=== PATIENT | male | born 2000 | race Caucasian/White ===

== ENCOUNTER 2023-02-12 18:52 | Emergency (ER) | payer MEDICAID, SELFPAY ==
[2023-02-12 19:11] VITALS: BP 134/77; PULSE 91; RESP 16; TEMP 36.7; O2SAT 97
[2023-02-12] MEDS: IBUPROFEN 200 MG TABLET 400 MG PO (21:05)
--- NOTE | 2023-02-12 21:09 | ED_ITS ---
HPI - General Adult General Date Seen: 02/12/23 Chief complaint: Ear/Nose/Throat Problem Stated complaint: 01/24 ear pain Time Seen by Provider: 02/12/23 20:50 Source: patient Mode of arrival: ambulatory Limitations: no limitations History of Present Illness HPI narrative: Patient is a 22-year-old young man who has had cold symptoms for few days and then starting 2 days ago developed ear pain 1st on the right and now bilaterally. This has become severe over the past 24 hours. Has not taken anything for pain. Has not had fevers. No drainage from the ears. General health is good. No allergies. Related Data Allergies Allergy/AdvReac Type Severity Reaction Status Date / Time No Known Drug Allergies Allergy Verified 02/12/23 19:11 PFSH PFSH Social History Smoking Status: Never smoker Do you use any of these nicotine containing products: None Second hand tobacco smoke exposure: Yes How often do you have a drink containing alcohol: never How often do you have six or more drinks on one occasion: Never AUDIT-C Alcohol total score: 0 Non-prescribed substance use: denies use service: No Exam Narrative: Exam Narrative: Vital signs reviewed In general, alert, well-appearing man. Eyes: Sclera clear. ENT: Nares are congested. Mucous membranes moist. Bilateral TMs are erythematous, dull bulging. Neck: Supple without adenopathy. Heart: Regular rate and rhythm. Lungs: Clear. Const: Vital Signs, click to edit/add: Vital Signs - 24 hr 02/12/23 19:11 Temperature 98.0 F Pulse Rate [Left P ulse Oximeter] 91 Respiratory Rate 16 Blood Pressure [Ri ght Upper Arm] 134/77 Pulse Oximetry 97 Oxygen Delivery Me thod Room Air Documenting provider has reviewed patient's vital signs: yes Course Course ED Course: Given ibuprofen here as he says he does not have anything at home. Will start him on amoxicillin given duration and worsening of symptoms although reviewed with him that often ear infections are viral and it may take a couple of days regardless to feel better. In the meantime I would recommend ibuprofen plus or minus Tylenol. Return for worsening. Primary care follow-up if not improving over the next few days despite treatment. Vital Signs Vital signs: Initial Vital Signs Temperature 98.0 F 02/12/23 19:11 Temperature Source Temporal Artery Scan 02/12/23 19:11 Pulse Rate 91 10/29/23 19:11 Pulse Rhythm Regular 02/12/23 19:11 Respiratory Rate 16 02/12/23 19:11 Blood Pressure 134/77 02/12/23 19:11 Blood Pressure Mean 96 02/12/23 19:11 Blood Pressure Position Sitting 02/12/23 19:11 Pulse Oximetry 97 02/12/23 19:11 Oxygen Delivery Method Room Air 02/12/23 19:11 Vital Signs Temperature 98.0 F 02/12/23 19:11 Pulse Rate 91 02/12/23 19:11 Respiratory Rate 16 02/12/23 19:11 Blood Pressure 134/77 02/12/23 19:11 Pulse Oximetry 97 02/12/23 19:11 Oxygen Delivery Method Room Air 02/12/23 19:11 Temperature 98.0 F 02/12/23 19:11 Pulse Rate 91 02/12/23 19:11 Respiratory Rate 16 02/12/23 19:11 Blood Pressure 134/77 02/12/23 19:11 Pulse Oximetry 97 02/12/23 19:11 Oxygen Delivery Method Room Air 02/12/23 19:11 Discharge Plan Discharge Clinical Impression: Otitis media Patient Disposition: Home, Self-Care Condition: Stable Instructions: Ear Infection (ED) Additional Instructions: Antibiotic as prescribed. Ibuprofen 400 mg 3 times daily +/-1000 mg of Tylenol 3 times daily. You should start to feel better over the next 48 hours. If you are feeling worse, develops high fevers, severe uncontrolled pain, return for re-evaluation. Follow Up/Referrals: Carmen Turk MD [Primary Care Provider] - Stand Alone Forms: [facility] Info Instructions
== END 2023-02-12 21:20 | disposition home or self-care (01) ==
LOC: ED 21:16
PROVIDERS: Emergency Provider Emergency Medicine; PCP Pediatrics
DX: H66.93 Otitis media, unspecified, bilateral (principal)
CPT/HCPCS: 99283; A9270

== ENCOUNTER 2024-08-16 15:04 | Emergency (ER) | payer OTHER, SELFPAY ==
--- OUTSIDE RECORDS SUMMARY | 2024-08-16 15:06 | XMS_ITS | Clinical Summary ---
Author Organization [facility] Address [address] [place] [id number] Care Team Providers Care Software Writer Name Role Phone Pcp, No Unavailable Unavailable Pcp, No Primary Care Provider Unavailabl e Allergies No known active allergies Medications Inhalational Spacing Device (INSPIREASE)Indica tions:Wheezing For home use. 1 Device 0 4 Active loratadine (CLARITIN) 10 mg tabletIndications: Wheezing Take 1 tablet by mouth once daily. 90 tablet 3 7 Active dextroamphetamine- amphetamine (ADDERALL XR) 10 mg Extended-Release capsuleIndications :ADD (attention deficit disorder) without hyperactivity TAKE ONE CAPSULE BY MOUTH ONE TIME DAILY 30 capsule 8 Active albuterol HFA (Ventolin HFA) 90 mcg/actuation inhalerIndications :Wheezing Inhale 2 Puffs by mouth every 4 hours if needed for Wheezing 2nd choice. 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 07/28/2011 Resolved Problems Problem Noted Date Diagnosed Date Resolved Date Chronic tonsillitis 02/28/2014 06/27/19 15 Immunizations Immunization Administration Dates Next Due AMB Influenza, IIV4 PF (=>6 mos Flulaval,Fluzone Fluarix)(Flu Clinic Only) 01/31/2014 DTP 11/06/2009, 4,11/29/1999,04/13,1998 HPV 9 (Gardasil 9) 02/20/2015 Hepatitis A (Peds) 11/06/2009,03/06/2007 Hepatitis B (Peds) 11/29/1999, 9,1998,07/23 Hib Conjugate, Unspecified 11/29/1999,04/13/1999 ,1998 Inactivated Polio Vaccine 09/10/2003,,04/13/1999,12/16 Influenza, IIV3 (Age >=3 years) 02/26/2013,03/01 Influenza,LAIV4 Live Intrana codey (Flumist) 02/26/2013,03/01/2010,03/08/2005 MENINGOCOCCAL VACCINE 2 VIAL [id number] (MENVEO) 02/20/2015 MMR 09/10/2003,04/06/2000 Tdap 11/06/2009 Family History Medical History Relation Name Comments Asthma Father Heart Disease Maternal Grandfather [place] Asthma Mother Thyroid Disease Mother hyperthyroid Asthma Sister x2 Anesthesia Problem No Family History Blood Disease No Family History Relation Name Status Comments Father Maternal Grandfather Mother Sister Social History Tobacco Use Types Packs/Day Years Used Date Smoking Tobacco: Never Smokeless Tobacco: Never Tobacco Cessation:Counseling Given: Yes Comments:outside exposure only Alcohol Use Standard Drinks/Week Comments No 0 (1 standard drink = 0.6 oz pur e alcohol) Social Connections Answer Date Recorded Frequency of Communication with Friends and Fami ly Not on file 04/21/2021 Financial Resource Strain Answer Date R ecorded Difficulty of Paying Living Expenses Not on file 04/21/2021 Difficulty of Paying Living Expenses Not on file 04/21/2021 Sex and Gender Information Value Date Recorded Sex Assigned at Not on file Legal Sex Male 8:27 AM PRODUCTION CONTROL COORDINATING CLERK Gender Identity Not on file Sexual Orientation Not on file Obstetrics History Last Filed Vital Signs Vital Sign Reading Time Taken Comments Blood Pressure 120/79 05/17/2022 12:48 PM PRODUCTION CONTROL COORDINATING CLERK Pulse 83 05/17/2022 12:48 PM PRODUCTION CONTROL COORDINATING CLERK Temperature 36.8 C (98.2 F) 05/17/2022 12:48 PM PRODUCTION CONTROL COORDINATING CLERK Respiratory Rate 20 06/26/2014 9:56 AM CDT Oxygen Saturation 97% 05/17/2022 12:48 PM PRODUCTION CONTROL COORDINATING CLERK Inhaled Oxygen Concentration - - Weight 95.8 kg (211 lb 3.2 oz) 05/17/2022 12:48 PM PRODUCTION CONTROL COORDINATING CLERK Height 175.6 cm (5' 9.13) 04/21/2021 7:41 AM CS T Body Mass Index 31.07 04/21/2021 7:41 AM PRODUCTION CONTROL COORDINATING CLERK Plan of Treatment Health Maintenance Due Date Last Done Comments HIV for age 15-65 2013 HPV series for age 9-26 (2 - Male 3-dose series) 03/20/2015 02/20/2015 Hepatitis C screening for age 18-79 2016 Depression screening for age 12+ 08/05/2017 08/05/2016, 08/13/2015, 08/12/2015 Tetanus booster 11/07/2019 11/06/2009 BMI (ht and wt on same day) for age 18+ 04/21/2022 04/21/2021, 12/03/2016, 10/20/2016, Additional history exists COVID-19 vaccine series (2023- season) 2023 Influenza Vaccine (Season Ended) 2024 01/31/2014, 02/26/2013, 02/26/2013, Additional history exists Tdap Completed 11/06/2009 Pneumococcal series for age 6-49 Aged Out No longer eligible based on patient's age to complete this topic Insurance [employer] Care Teams Software Writer Relationship Specialty Start Date End Date Pcp, No . PCP - General 04/24/24 Pcp, No . 01/06/14
[2024-08-16 15:11] VITALS: BP 132/85; PULSE 90; RESP 26; TEMP 35.7; O2SAT 96; BMI 32.3
--- NOTE | 2024-08-16 15:41 | ED_ITS ---
HPI - General Adult General Chief complaint: Nausea/Vomiting Stated complaint: Stomach issues, fever Time Seen by Provider: 08/16/24 15:05 Source: patient and family Mode of arrival: ambulatory Limitations: no limitations History of Present Illness HPI narrative: 24-year-old male presents today with his father, concerned about vomiting. Vomiting started this morning and has continued throughout the day. Patient denies any fevers or chills. Patient states that he vomits 1st thing in the morning approximately once or twice every 2 weeks. No diarrhea. No urinary symptoms. No abdominal pain aside from cramping. He has not eaten anything today because he can not stop dry heaving. Patient smokes marijuana daily. Denies alcohol use. No blood in his vomitus. Patient takes no medications. Has no known medical issues. Has a family history of connective tissue disease. Related Data Home Medications ?Medication ?Instructions ?Recorded ?Confirmed No Known Home Medications 08/16/24 08/16/24 Allergies Allergy/AdvReac Type Severity Reaction Status Date / Time No Known Drug Allergies Allergy Verified 08/16/24 15:10 Review of Systems Status of ROS: Reports: 10 or more systems reviewed and unremarkable except as noted in History and below [facility] Social History Smoking Status: Never smoker Do you use any of these nicotine containing products: None Second hand tobacco smoke exposure: Yes How often do you have a drink containing alcohol: never How often do you have six or more drinks on one occasion: Never AUDIT-C Alcohol total score: 0 Non-prescribed substance use: denies use service: No Exam Narrative: Exam Narrative: Overweight, well-developed patient, clearly uncomfortable. Dry heaves several times during our conversation. Alert and oriented. Answers questions appropriately. Patient speaks in full sentences without needing to catch his breath. HEENT: Normocephalic atraumatic. Pupils are equally round reactive to light. Extraocular muscles are intact. Conjunctivae are moist without any icterus noted. Moist mucous membranes. Posterior pharynx is normal. Neck is soft without any lymphadenopathy or thyromegaly. No masses are appreciated. No appears pale, diaphoretic. Cardiovascular: Heart is regular rate and rhythm S1 and S2 are present without any murmurs. Lungs: Clear to auscultation bilaterally no wheezes rhonchi or rales are appreciated. Abdomen: Soft and nontender nondistended with normal bowel sounds. Extremities: Bilateral lower extremities are without edema. Skin: Well perfused without any obvious rashes. Const: Vital Signs, click to edit/add: Vital Signs - 24 hr 08/16/24 15:11 Temperature 96.3 F L Pulse Rate [Pulse Oximeter] 90 Respiratory Rate 26 H Blood Pressure [Ri t Upper Arm] 132/85 Pulse Oximetry 96 Oxygen Delivery Me thod Room Air Course Course ED Course: IV established. Patient was treated with 2 L of normal saline and IV droperidol. He felt much better after treatment. Blood work showed elevated white cell count and elevated lactate. Repeat lactate came down to 2.7. Again, patient was feeling significantly better and requesting discharge at this time. Vital Signs Vital signs: Initial Vital Signs Temperature 96.3 F L 08/16/24 15:11 Temperature Source Temporal Artery Scan 08/16/24 15:11 Pulse Rate 90 08/16/24 15:11 Respiratory Rate 26 H 08/16/24 15:11 Blood Pressure 132/85 08/16/24 15:11 Blood Pressure Mean 100 08/16/24 15:11 Pulse Oximetry 96 08/16/24 15:11 Oxygen Delivery Method Room Air 08/16/24 15:11 Vital Signs Temperature 96.3 F L 08/16/24 15:11 Pulse Rate 90 08/16/24 15:11 Respiratory Rate 26 H 08/16/24 15:11 Blood Pressure 132/85 08/16/24 15:11 Pulse Oximetry 96 08/16/24 15:11 Oxygen Delivery Method Room Air 08/16/24 15:11 Temperature 96.3 F L 08/16/24 15:11 Pulse Rate 90 08/16/24 15:11 Respiratory Rate 26 H 08/16/24 15:11 Blood Pressure 132/85 08/16/24 15:11 Pulse Oximetry 96 08/16/24 15:11 Oxygen Delivery Method Room Air 08/16/24 15:11 Medications Administered Medications: Discontinued Medications Generic Name Dose Route Start Last Admin Trade Name Freq PRN Reason Stop Dose Admin Droperidol 1.25 mg 08/16/24 15:39 08/16/24 15:56 Droperidol 2.5 Mg/Ml Inj IV 08/16/24 15:40 1.25 mg ONCE ONE Administration Sodium Chloride 1,000 mls @ 1,000 mls/hr 08/16/24 15:45 08/16/24 15:56 0.9 % Sodium Chloride 1000 Ml IV 08/16/24 16:44 1,000 mls/hr .Q1H TRENT Administration Sodium Chloride 1,000 mls @ 1,000 mls/hr 08/16/24 16:30 08/16/24 17:05 0.9 % Sodium Chloride 1000 Ml IV 08/16/24 17:29 1,000 mls/hr .Q1H TRENT Administration Medical Decision Making MDM Narrative Medical decision making narrative: 24-year-old male with vomiting. Likely secondary to marijuana use. We discussed this at length today. Lab Data Lab results reviewed: Yes I reviewed the patient's lab results Labs: Lab Results 08/16/24 08/16/24 Range/Units 16:00 17:55 WBC 14.44 H (4.50-11.00) K/uL RBC 5.41 (4.30-5.90) m/uL Hgb 16.0 (13.5-17.5) gm/dL Hct 46.8 (37.0-53.0) % MCV 87 (80-100) fL MCH 30 (26-34) pg MCHC 34 (32-36) gm/dL RDW Coeff of Yessy 13.5 (11.5-15.5) % Plt Count 287 (140-440) K/uL Neut % (Auto) 79.4 H (42.0-72.0) % Lymph % (Auto) 14.3 L (20-44) % Newberry % (Auto) 5.5 (0.0-11.0) % Eos % (Auto) 0.1 (0.0-7.0) % Baso % (Auto) 0.2 (0.0-3.0) % Neut # (Auto) 11.50 H (1.7-7.0) K/uL Lymph # (Auto) 2.10 (0.90-2.90) K/uL Newberry # (Auto) 0.80 (0.00-0.90) K/UL Eos # (Auto) 0.00 (0.00-0.50) K/uL Baso # (Auto) 0.00 (0.00-0.30) K/uL Abs Immat Gran (auto) 0.10 (0.00-0.30) K/uL Imm/Tot Granulo (auto) 0.5 % Sodium 144 (135-149) mmol/L Potassium 4.2 (3.6-5.1) mmol/L Chloride 108 (96-114) mmol/L Carbon Dioxide 18 L (20-32) mmol/L Anion Gap 18 H (7-15) mEq/L BUN 22 (5-24) mg/dL Creatinine 0.9 (0.5-1.5) mg/dL Estimated Creat Clear 124.38 Estimated GFR 121 ml/min Glucose 131 H (60-115) mg/dL Lactate 3.8 H 2.7 H (0.5-1.9) mmol/L Calcium 10.0 (8.4-10.6) mg/dL Total Bilirubin 0.6 (0.1-1.5) mg/dL Direct Bilirubin 0.4 (0.0-0.5) mg/dL AST 38 H (12-35) U/L ALT 42 (4-50) U/L Alkaline Phosphatase 72 (40-150) U/L Total Protein 8.6 H (6.0-8.3) g/dL Albumin 5.2 H (3.3-5.0) g/dL Lipase 35 (23-300) U/L Discharge Plan Discharge Clinical Impression: Vomiting Patient Disposition: Home, Self-Care Condition: Stable Additional Instructions: It is very likely that your vomiting secondary to chronic marijuana use. Recommend abstaining from marijuana use going forward. It can take several months for the vomiting to subside completely. Prescriptions: No Action No Known Home Medications Follow Up/Referrals: Carmen Turk MD [Primary Care Provider] - Stand Alone Forms: [employer] Info Instructions
--- OUTSIDE RECORDS SUMMARY | 2024-08-16 15:55 | XMS_ITS | Clinical Summary ---
Author Organization [facility] Address [address] [place] [id number] Care Team Providers Care Event Designer Name Role Phone Pcp, No Unavailable Unavailable [...] Comments Asthma Father Heart Disease Maternal Grandfather [place] Asthma Mother Thyroid Disease Mother hyperthyroid Asthma [...] on file Legal Sex Male 8:27 AM CURTAIN WORKER Gender Identity Not on file Sexual Orientation Not on file Obstetrics History Last Filed Vital Signs Vital Sign Reading Time Taken Comments Blood Pressure 120/79 05/17/2022 12:48 PM CURTAIN WORKER Pulse 83 05/17/2022 12:48 PM CURTAIN WORKER Temperature 36.8 C (98.2 F) 05/17/2022 12:48 PM CURTAIN WORKER Respiratory Rate 20 06/26/2014 9:56 AM CDT Oxygen Saturation 97% 05/17/2022 12:48 PM CURTAIN WORKER Inhaled Oxygen Concentration - - Weight 95.8 kg (211 lb 3.2 oz) 05/17/2022 12:48 PM CURTAIN WORKER Height 175.6 cm (5' 9.13) 04/21/2021 7:41 AM CS T Body Mass Index 31.07 04/21/2021 7:41 AM CURTAIN WORKER Plan of Treatment Health Maintenance Due Date [...] patient's age to complete this topic Insurance [facility] Care Teams Event Designer Relationship Specialty Start Date End Date Pcp, No . PCP - General 04/24/24 Pcp, No . 01/06/14
[2024-08-16] MEDS: 0.9 % SODIUM CHLORIDE 1000 ml 1,000 ML IV ×2 (15:56→17:05)
[2024-08-16] MEDS: droperidoL 2.5 MG/ML inj 1.25 MG IV (15:56)
[2024-08-16 16:10] LABS: Basophils Percent Auto 0.2 % (0.0-3.0); Eosinophils Percent Auto 0.1 % (0.0-7.0); Hematocrit 46.8 % (37.0-53.0); Immature Granulocytes Pct Auto 0.5 %; Lymphocytes Percent Auto 14.3 % (20-44); Mean Corpuscular HGB Conc 34 gm/dL (32-36); Mean Corpuscular Hemoglobin 30 pg (26-34); Mean Corpuscular Volume 87 fL (80-100); Monocytes Percent Auto 5.5 % (0.0-11.0); Neutrophils Percent Auto 79.4 % (42.0-72.0); Platelet Count* 287 K/uL (140-440); RDW Coefficient of Variation % 13.5 % (11.5-15.5); Red Blood Count 5.41 m/uL (4.30-5.90); White Blood Count* 14.44 K/uL (4.50-11.00)
[2024-08-16 16:13] LABS: Slide Review Reflex No
[2024-08-16 16:17] LABS: Lactate* 3.8 mmol/L (0.5-1.9)
[2024-08-16 16:48] LABS: Albumin* 5.2 g/dL (3.3-5.0)
[2024-08-16 16:49] LABS: Chloride* 108 mmol/L (96-114); Potassium* 4.2 mmol/L (3.6-5.1); Sodium* 144 mmol/L (135-149)
[2024-08-16 16:51] LABS: Blood Urea Nitrogen* 22 mg/dL (5-24); Creatinine* 0.9 mg/dL (0.5-1.5); Est. Creatinine Clearance* 124.38; Estimated Glomerular Filt Rate 121 ml/min
[2024-08-16 16:52] LABS: Alanine Aminotransferase* 42 U/L (4-50); Alkaline Phosphatase* 72 U/L (40-150); Anion Gap 18 mEq/L (7-15); Aspartate Amino Transferase* 38 U/L (12-35); Bilirubin Direct* 0.4 mg/dL (0.0-0.5); Bilirubin Total* 0.6 mg/dL (0.1-1.5); Carbon Dioxide* 18 mmol/L (20-32); Glucose* 131 mg/dL (60-115); Lipase* 35 U/L (23-300); Total Protein* 8.6 g/dL (6.0-8.3)
[2024-08-16 17:58] LABS: Lactate* 2.7 mmol/L (0.5-1.9)
[2024-08-16 18:15] VITALS: BP 147/97; PULSE 90; RESP 16
[2024-08-16 18:22] LABS: Thyroid Stimulating Hormone* 0.532 uIU/mL (0.270-4.20)
== END 2024-08-16 18:16 | disposition home or self-care (01) ==
PROVIDERS: Emergency Provider Family Medicine; PCP Pediatrics
DX: R11.10 Vomiting, unspecified (principal); F12.90 Cannabis use, unspecified, uncomplicated; Z86.69 Personal history of other diseases of the nervous system and sense organs
CPT/HCPCS: 36415; 80048; 80076; 83605; 83690; 84443; 85025; 93005; 96361; 96374; 99284; J1790; J7030

== ENCOUNTER 2024-08-20 22:25 | Emergency (ER) | payer OTHER, SELFPAY ==
--- OUTSIDE RECORDS SUMMARY | 2024-08-20 22:27 | XMS_ITS | Clinical Summary ---
Author Organization [employer] [facility] [employer] Address [address] [place] [id number] Care Team Providers Care Equal Opportunity Director Name Role Phone Pcp, No Unavailable Unavailable Pcp, No Primary Care Provider Unavailabl e Allergies No known active allergies Medications Inhalational Spacing Device (INSPIREASE)Indicat ions:Wheezing For home use. 1 Device 0 4 Active loratadine (CLARITIN) 10 mg tabletIndications:W heezing Take 1 tablet by mouth once daily. 90 tablet 3 7 Active dextroamphetamine-a mphetamine (ADDERALL XR) 10 mg Extended-Release capsuleIndications: ADD (attention deficit disorder) without hyperactivity TAKE ONE CAPSULE BY MOUTH ONE TIME DAILY 30 capsule 8 Active albuterol HFA (Ventolin HFA) 90 mcg/actuation inhalerIndications: Wheezing Inhale 2 Puffs by mouth every 4 hours if needed for Wheezing 2nd choice. 18 g 1 2 Active ondansetron 4 mg disintegrating tabletIndications:N ausea and vomiting, unspecified vomiting type Place 1 Tablet (4 mg) on the tongue every 8 hours if needed for Nausea/Vomit ing. 30 Tablet 5 Active omeprazole 40 mg Delayed-Release capsuleIndications: Abdominal pain, generalized Take 1 Capsule (40 mg) by mouth once daily before a meal. 30 Capsule 5 Active Active Problems Problem Noted Date Diagnosed Date Deviated nasal septum 02/28/2014 ADD (attention deficit disorder) without hyperac tivity 07/28/2011 Resolved Problems Problem Noted Date Diagnosed Date Resolved Date Chronic tonsillitis 02/28/2014 06/27/19 15 Encounters Date Type Department Care Team Description 08/20/2024 4:30 PM CDT Ancillary Procedure [facility] [address] [place] [address] Arrived 08/20/2024 2:40 PM CDT Office Visit [facility] [address] [place] [address] Job Hutchinson MD Hospital F/U; Gi Problem; Nausea 08/20/2024 Travel from Last 3 Months Immunizations Immunization Administration Dates Next Due AMB Influenza, IIV4 PF (=>6 mos Flulaval,Fluzone Fluarix)(Flu Clinic Only) 01/31/2014 DTP 11/06/2009, 4,11/29/1999,04/13,1998 DTaP 09/10/2003,04/13/1999,1998 DTaP-HIB (TriHIBIT) 11/29/1999 HIB HbOC (HibTITER) 04/13/1999,1998 HPV 9 (Gardasil 9) 02/20/2015 Hepatitis A (Peds) 11/06/2009,03/06/2007 Hepatitis B (Peds) 11/29/1999, 9,1998,07/23 Hepatitis B, Unspecified 1998 Hib Conjugate, Unspecified 11/29/1999,04/13/1999 ,1998 INFLUENZA, IIV3 PF (AGE >= 6 MO) 06/01/2006 Inactivated Polio Vaccine 09/10/2003,,04/13/1999,12/16 Influenza, IIV3 (Age >=3 years) 02/27/20 13,03/01/2010,03/06/2007,03/08 Influenza,LAIV3 Live Intrana codey (Flumist) 02/26/2013,12/04/2007 Influenza,LAIV4 Live Intrana codey (Flumist) 02/26/2013,03/01/2010,03/08/2005 MENINGOCOCCAL VACCINE 2 VIAL [id number] (MENVEO) 02/20/2015 MMR 09/10/2003,04/06/2000 Tdap 10/12/2016,11/06/2009 Family History Medical History Relation Name Comments Asthma Father Heart Disease Maternal Grandfather NE Asthma Mother Thyroid Disease Mother hyperthyroid Asthma Sister x2 Anesthesia Problem No Family History Blood Disease No Family History Relation Name Status Comments Father Maternal Grandfather Mother Sister Social History Tobacco Use Types Packs/Day Years Used Date Smoking Tobacco: Never Passive Smoke Exposure: Current Smokeless Tobacco: Never Tobacco Cessation:Counseling Given: Not Answered Comments:outside exposure only Alcohol Use Standard Drinks/Week Comments No 0 (1 standard drink = 0.6 oz pur e alcohol) Social Connections Answer Date Recorded Do you often feel lonely or isolated from those around you? 0 08/20/2024 Financial Resource Strain Answer Date R ecorded Difficulty of Paying Living Expenses 3 08/20/2024 Difficulty of Paying Living Expenses Not on file 08/20/2024 Food Insecurity Answer Date Recorded Do you worry your food will run out before you are able to buy more? 1 08/20/2024 Transportation Needs Answer Date Record ed Does lack of transportation keep you from medica l appointments? 1 08/20/2024 Does lack of transportation keep you from work, meetings or getting things that you need? 1 08/20/2024 Housing Stability Answer Date Recorded What is your housing situation today? 1 08/20/2024 Utilities Answer Date Recorded Do you have trouble paying f or utilities (for example, heat, electricity, water, phone)? 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 Gender Identity Not on file Sexual Orientation Not on file Obstetrics History Last Filed Vital Signs Vital Sign Reading Time Taken Comments Blood Pressure 126/86 08/20/2024 2:39 PM CDT Pulse 90 08/20/2024 2:39 PM CDT Temperature 36.8 C (98.2 F) 05/17/2022 12:48 PM CUSTOMER PRICING MANAGER Respiratory Rate 20 06/26/2014 9:56 AM CDT Oxygen Saturation 97% 05/17/2022 12:48 PM CUSTOMER PRICING MANAGER Inhaled Oxygen Concentration - - Weight 93.9 kg (207 lb) 08/20/2024 2:39 PM CDT Height 174.5 cm (5' 8.7) 08/20/2024 2:39 PM CDT Body Mass Index 30.84 08/20/2024 2:39 PM CDT Plan of Treatment Upcoming Encounters Date Type Department Care Team (Late st Contact Info) Description 08/22/2024 7:30 AM CDT Office [facility] [address] [facility] [address] Nader Rios MD [address] [place] [address] Health Maintenance Due Date Last Done Comments HIV for age 15-65 2013 HPV series for age 9-26 (2 - Male 3-dose series) 03/20/2015 02/20/2015 Hepatitis C screening for age 18-79 2016 Depression screening for age 12+ 08/05/2017 08/05/2016, 08/13/2015, 08/12/2015 COVID-19 vaccine series ( season) 2023 Influenza Vaccine (Season Ended) 2024 01/31/2014, 02/26/2013, 02/26/2013, Additional history exists BMI (ht and wt on same day) for age 18+ 08/20/2025 08/20/2024, 04/21/2021, 12/03/2016, Additional history exists Tetanus booster 10/12/2026 10/12/2016, 11/06/2009 Tdap Completed 10/12/2016, 11/06/2009 Pneumococcal series for age 6-49 Aged Out No longer eligible based on patient's age to complete this topic Procedures Procedure Name Priority Date/Time Associated Diagnosis Comments CT ABDOMEN PELVIS W STAT 08/20/2024 4 :51 PM CDT Abdominal pain, generalized from Last 3 Months Results * CT ABDOMEN PELVIS W (08/20/2024 4:51 PM CDT) Anatomical Region Laterality Modality Abdomen, Pelvis, AORTA, LIVER, SPLEEN Computed Tomography 08/20/2024 5:20 PM CDT Narrative 08/20/2024 5:20 PM CDT For Patients: As a result of the Cures Act, medical imaging exams and procedure reports are released immediately into your electronic medical record. You may view this report before your referring provider. If you have questions, please contact your health care provider. Indication: Abdominal pain. Technique: CT images of the abdomen and pelvis following intravenous contrast. Comparison: None. Findings: Small consolidative and branching opacities within the right middle lobe inferiorly. Clustered ground-glass and tree-in-bud opacities within the right greater than left lower lobes. No pleural effusion. Heart size is normal. The liver, spleen, gallbladder, and pancreas are unremarkable. The adrenal glands and kidneys are unremarkable. The stomach is underdistended. Appendix is unremarkable. No abnormally dilated loops of bowel. No free fluid or free air. Abdominal aorta is normal in caliber. No pathologically enlarged lymph nodes. Very small fat containing umbilical hernia. The urinary bladder is underdistended. Prostate gland is present. No aggressive osseous lesions. Impression: 1. No acute abnormality in the abdomen or pelvis. 2. Clustered ground-glass and tree-in-bud opacities within the right greater than left lower lobes of the lungs are nonspecific, though typical for an infectious or inflammatory process. Small consolidative and branching opacities within the right middle lobe inferiorly may represent atelectasis, though infection could also be considered. Dedicated CT chest could be performed for further evaluation as clinically warranted. Please note that all CT scans at this facility use dose modulation, iterative reconstruction, and/or weight-based dosing when appropriate to reduce radiation dose to as low as reasonably achievable. Dictated by Claudio Ramsay MD @ 08/20/2024 5:20:58 PM (Electronically Signed) Procedure Note Claudio Ramsay MD - 08/20/2024 For Patients: As a result of the Cures Act, medical imagingexams and procedure reports are released immediately into your electronicmedical record. You may view this report before your referring provider.If you have questions, please contact your health care provider. Indication: Abdominal pain. Technique: CT images of the abdomen and pelvis following intravenous contrast. Comparison: None. Findings: Small consolidative and branching opacities within the right middle lobeinferiorly. Clustered ground-glass and tree-in-bud opacities within theright greater than left lower lobes. No pleural effusion. Heart size isnormal. The liver, spleen, gallbladder, and pancreas are unremarkable. The adrenal glands and kidneys are unremarkable. The stomach is underdistended. Appendix is unremarkable. No abnormallydilated loops of bowel. No free fluid or free air. Abdominal aorta is normal in caliber. No pathologically enlarged lymph nodes. Very small fat containing umbilical hernia. The urinary bladder is underdistended. Prostate gland is present. No aggressive osseous lesions. Impression: 1. No acute abnormality in the abdomen or pelvis. 2. Clustered ground-glass and tree-in-bud opacities within the rightgreater than left lower lobes of the lungs are nonspecific, though typicalfor an infectious or inflammatory process. Small consolidative andbranching opacities within the right middle lobe inferiorly may representatelectasis, though infection could also be considered. Dedicated CT chestcould be performed for further evaluation as clinically warranted. Please note that all CT scans at this facility use dose modulation,iterative reconstruction, and/or weight-based dosing when appropriate toreduce radiation dose to as low as reasonably achievable. Dictated by Claudio Ramsay MD @ 08/20/2024 5:20:58 PM (Electronically Signed) us Job Hutchinson MD CT Final Result from Last 3 Months Insurance [id number] [place] [id number] [facility] Care Teams Equal Opportunity Director Relationship Specialty Start Date End Date Pcp, No . PCP - General 04/24/24 Pcp, No . 01/06/14
[2024-08-20 22:45] VITALS: BP 147/106; PULSE 98; RESP 16; TEMP 36.7; O2SAT 98; BMI 30.7
--- NOTE | 2024-08-20 23:00 | CRLHL7_ITS ---
For Patients: As a result of the Century Cures Act, medical imaging exams and procedure reports are released immediately into your electronic medical record. You may view this report before your referring provider. If you have questions, please contact your health care provider. Indication: Abnormalities seen on lower lobes abdominal CT Technique: Noncontrast CT of the chest with multiplanar reformats. Comparison: CT abdomen pelvis performed same day Findings: Lungs: Clustered nodular and curvilinear densities in the right lung base again noted. This appeared to enhance on prior examination and appears to be contiguous with internal thoracic, phrenic, and possibly pulmonary vasculature. This is not felt to be a primary pulmonary consolidation. Mediastinum: No acute abnormality appreciated. Lymph nodes: No gross lymphadenopathy. Upper abdomen: No acute abnormality appreciated. Soft tissues: No acute abnormality appreciated. Bones: No acute abnormality appreciated. Impression: Abnormality seen in the right lung base is favored to be vascular, not an infectious or inflammatory process. This is poorly evaluated by this noncontrast examination but based on images on the prior examination, a vascular malformation is suspected with involvement of the internal thoracic artery and the phrenic artery, possibly with additional involvement of pulmonary vasculature. Recommend vascular IR consultation. Please note that all CT scans at this facility use dose modulation, iterative reconstruction, and/or weight-based dosing when appropriate to reduce radiation dose to as low as reasonably achievable. Dictated by Tawanad Do MD @ 08/21/2024 12:07:26 AM (Electronically Signed)
--- OUTSIDE RECORDS SUMMARY | 2024-08-20 23:05 | XMS_ITS | Clinical Summary ---
Author Organization [employer] [facility] [employer] [facility] Address [address] [place] [address] Care Team Providers Care Wind Turbine Mechanical Engineer Name Role Phone Pcp, No Unavailable Unavailable [...] Description 08/20/2024 4:30 PM CDT Ancillary Procedure [facility] [address] [place] [address] Arrived 08/20/2024 2:40 PM CDT Office Visit [facility] [address] [place] [address] Job Hutchinson MD Hospital F/U; Gi Problem; [...] Comments Asthma Father Heart Disease Maternal Grandfather ID Asthma Mother Thyroid Disease Mother hyperthyroid Asthma [...] on file 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 Gender Identity Not on file Sexual Orientation Not on file Obstetrics History Last Filed Vital Signs Vital Sign Reading Time Taken Comments Blood Pressure 126/86 08/20/2024 2:39 PM CDT Pulse 90 08/20/2024 2:39 PM CDT Temperature 36.8 C (98.2 F) 05/17/2022 12:48 PM LABOR RELATIONS WORKER Respiratory Rate 20 06/26/2014 9:56 AM CDT Oxygen Saturation 97% 05/17/2022 12:48 PM LABOR RELATIONS WORKER Inhaled Oxygen Concentration - - Weight 93.9 kg (207 lb) 08/20/2024 2:39 PM CDT Height 174.5 cm (5' 8.7) 08/20/2024 2:39 PM CDT Body Mass Index 30.84 08/20/2024 2:39 PM CDT Plan of Treatment Upcoming Encounters Date Type Department Care Team (Late st Contact Info) Description 08/22/2024 7:30 AM CDT [facility] [address] [facility] [address] Nader Rios MD [address] [place] [address] Health Maintenance Due Date Last Done Comments [...] Final Result from Last 3 Months Insurance [facility] Care Teams Wind Turbine Mechanical Engineer Relationship Specialty Start Date End Date Pcp, No . PCP - General 04/24/24 Pcp, No . 01/06/14
--- NOTE | 2024-08-20 23:06 | ED.GENADULT ---
HPI - General Adult General Date Seen: 08/20/24 Chief complaint: Nausea/Vomiting Stated complaint: CT today, infection in lungs Time Seen by Provider: 08/20/24 22:41 Source: patient and family Mode of arrival: ambulatory Limitations: no limitations History of Present Illness HPI narrative: Patient is a 24-year-old male presenting to the emergency department with his mother. He was seen here few days ago and diagnosed with cannabinoid hyperemesis syndrome. Symptoms have been going on for a few weeks now. He does smoke marijuana daily but has not smoked marijuana now for 6 days he states. States only thing that makes him feel better is a hot shower. Has not had any blood in his vomit. Continues to feel nauseated and is dry heaving. Has not been able to eat or drink much. Had follow-up with his primary care provider today with that is CT scan of his abdomen pelvis showing no acute abdominal issues but there were some signs of possible pneumonia and a dedicated CT was recommended. Do this patient came to our emergency department for evaluation. Did have lab work done but did not have results Related Data Previous Rx's ?Medication ?Instructions ?Recorded metoclopramide HCl 10 mg tablet 10 mg PO Q6H PRN nausea and 08/21/24 vomiting #20 tabs Allergies Allergy/AdvReac Type Severity Reaction Status Date / Time No Known Drug Allergies Allergy Verified 08/20/24 22:44 Review of Systems Status of ROS: Reports: 10 or more systems reviewed and unremarkable except as noted in History and below [facility] Social History Smoking Status: Never smoker Do you use any of these nicotine containing products: None Second hand tobacco smoke exposure: Yes How often do you have a drink containing alcohol: never How often do you have six or more drinks on one occasion: Never AUDIT-C Alcohol total score: 0 Non-prescribed substance use: denies use service: No Exam Narrative: Exam Narrative: Const: Well-nourished, Well-developed, in mild distress Eyes: PERRL, no conjunctival injection, and symmetrical lids HENT: Atraumatic external nose and ears. Moist mucous membranes. Neck: Symmetric, trachea midline, No thyromegaly. CVS: RRR, No murmurs or gallops. Peripheral pulses 2+ and equal in all extremities RESP: Unlabored respiratory effort. Clear to auscultation bilaterally. GI: Nontender/Nondistended, No rebound or guarding. MSK:Extremities w/o deformity, Normal Active ROM Skin: Warm, Dry. No rashes or lesions. Neuro: Normal Muscle tone, No focal neurological deficits. Psych: Awake, Alert, & Oriented x3. Appropriate mood and affect. Const: Vital Signs, click to edit/add: Vital Signs - 24 hr 08/20/24 22:45 08/20/24 23:55 08/20/24 23:56 Temperature 98.0 F Pulse Rate 87 89 Pulse Rate [Pulse Oximeter] 98 Respiratory Rate 16 14 13 Blood Pressure 144/101 H Blood Pressure [Ri ght Upper Arm] 147/106 H Pulse Oximetry 98 96 96 Oxygen Delivery Me thod Room Air Course Vital Signs Vital signs: Initial Vital Signs Temperature 98.0 F 08/20/24 22:45 Temperature Source Temporal Artery Scan 08/20/24 22:45 Pulse Rate 98 08/20/24 22:45 Respiratory Rate 16 08/20/24 22:45 Blood Pressure 147/106 H 08/20/24 22:45 Blood Pressure Mean 119 H 08/20/24 22:45 Blood Pressure Position High-Fowlers 08/20/24 22:45 Pulse Oximetry 98 08/20/24 22:45 Oxygen Delivery Method Room Air 08/20/24 22:45 Vital Signs Temperature 98.0 F 08/20/24 22:45 Pulse Rate 98 08/20/24 22:45 Respiratory Rate 16 08/20/24 22:45 Blood Pressure 147/106 H 08/20/24 22:45 Pulse Oximetry 98 08/20/24 22:45 Oxygen Delivery Method Room Air 08/20/24 22:45 Temperature 98.0 F 08/20/24 22:45 Pulse Rate 89 08/20/24 23:56 Respiratory Rate 13 08/20/24 23:56 Blood Pressure 144/101 H 08/20/24 23:56 Pulse Oximetry 96 08/20/24 23:56 Oxygen Delivery Method Room Air 08/20/24 22:45 Medications Administered Medications: Discontinued Medications Generic Name Dose Route Start Last Admin Trade Name Freq PRN Reason Stop Dose Admin Sodium Chloride 1,000 mls @ 1,000 mls/hr 08/20/24 23:00 08/20/24 23:28 0.9 % Sodium Chloride 1000 Ml IV 08/20/24 23:59 1,000 mls/hr .Q1H TRENT Administration Metoclopramide HCl 10 mg 08/20/24 23:00 08/20/24 23:28 Metoclopramide Hcl 5 Mg/Ml Inj IVP 08/20/24 23:01 10 mg ONCE ONE Administration Medical Decision Making MDM Narrative Medical decision making narrative: Patient is a 24-year-old male presenting for CT scan of his chest due to abnormality seen in a dedicated abdomen and pelvis CT. Will order that chest CT here. His vital signs are stable though he appears overall well. His abdominal symptoms are most likely related to cannabinoid hyperemesis syndrome. Again his symptoms resolve with hot showers. We do not have the lab work from earlier and I will order a CBC, BMP, lipase. Will also give him a L of fluids and some Reglan. Patient's white count is elevated at 14.53 but this is likely due to his vomiting. Is consistent with his white blood cell count from 4 days ago. Rest some lab work shows no concerning findings. Patient is feeling better after his medications. CT scan reviewed by myself and the radiologist shows a possible vascular malformation in the right lung base. They do recommend a vastly IR consult with patient's not having any hemoptysis and this is unlikely to be an acute issue causing any symptoms at this time. This can be safely followed up outpatient. I will discharge the patient with Reglan. Lab Data Labs: Lab Results 08/20/24 Range/Units 23:25 WBC 14.53 H (4.50-11.00) K/uL RBC 5.86 (4.30-5.90) m/uL Hgb 17.3 (13.5-17.5) gm/dL Hct 48.4 (37.0-53.0) % MCV 83 (80-100) fL MCH 30 (26-34) pg MCHC 36 (32-36) gm/dL RDW Coeff of Yessy 13.0 (11.5-15.5) % Plt Count 293 (140-440) K/uL Neut % (Auto) 67.7 (42.0-72.0) % Lymph % (Auto) 19.0 L (20-44) % Radford % (Auto) 11.9 H (0.0-11.0) % Eos % (Auto) 0.1 (0.0-7.0) % Baso % (Auto) 0.1 (0.0-3.0) % Neut # (Auto) 9.80 H (1.7-7.0) K/uL Lymph # (Auto) 2.80 (0.90-2.90) K/uL Radford # (Auto) 1.70 H (0.00-0.90) K/UL Eos # (Auto) 0.00 (0.00-0.50) K/uL Baso # (Auto) 0.00 (0.00-0.30) K/uL Abs Immat Gran (auto) 0.20 (0.00-0.30) K/uL Imm/Tot Granulo (auto) 1.2 % Sodium 136 (135-149) mmol/L Potassium 3.5 L (3.6-5.1) mmol/L Chloride 96 (96-114) mmol/L Carbon Dioxide 17 L (20-32) mmol/L Anion Gap 23 H (7-15) mEq/L BUN 39 H (5-24) mg/dL Creatinine 1.3 (0.5-1.5) mg/dL Estimated Creat Clear 86.11 Estimated GFR 78 ml/min Glucose 102 (60-115) mg/dL Calcium 10.2 (8.4-10.6) mg/dL Lipase 49 (23-300) U/L Imaging Data CT scan - chest: Attestation: I have reviewed the pertinent imaging results. Radiologist's impression: Abnormality seen in the right lung base is favored to be vascular, not an infectious or inflammatory process. This is poorly evaluated by this noncontrast examination but based on images on the prior examination, a vascular malformation is suspected with involvement of the internal thoracic artery and the phrenic artery, possibly with additional involvement of pulmonary vasculature. Recommend vascular IR consultation. Please note that all CT scans at this facility use dose modulation, iterative reconstruction, and/or weight-based dosing when appropriate to reduce radiation dose to as low as reasonably achievable. Dictated by Tawanda Do MD @ 08/21/2024 12:07:26 AM Discharge Plan Discharge Clinical Impression: Cannabinoid hyperemesis syndrome Patient Disposition: Home, Self-Care Condition: Stable Instructions: Cannabis Use Disorder (ED) Additional Instructions: Your symptoms are likely all related to your daily marijuana use. Symptoms may persist for several months before they fully go away. Is important that you abstain from marijuana use as it will only make your symptoms worse and prolonged them. You can try taking the Reglan for your nausea. There was a vascular abnormality seen on your CT scan. This is likely chronic and would not be causing her current symptoms. I recommend following up with the primary care provider again for possible vascular IR consult. Prescriptions: New metoclopramide HCl 10 mg tablet 10 mg PO Q6H PRN (Reason: nausea and vomiting) Qty: 20 0RF Follow Up/Referrals: Job Hutchinson MD [Primary Care Provider] - Stand Alone Forms: [employer] Info Instructions
[2024-08-20] MEDS: 0.9 % SODIUM CHLORIDE 1000 ml 1,000 ML IV (23:28)
[2024-08-20] MEDS: METOCLOPRAMIDE HCL 5 MG/ML INJ 10 MG IVP (23:28)
[2024-08-20 23:42] LABS: Basophils Percent Auto 0.1 % (0.0-3.0); Eosinophils Percent Auto 0.1 % (0.0-7.0); Hematocrit 48.4 % (37.0-53.0); Hemoglobin* 17.3 gm/dL (13.5-17.5); Immature Granulocytes Pct Auto 1.2 %; Mean Corpuscular HGB Conc 36 gm/dL (32-36); Mean Corpuscular Hemoglobin 30 pg (26-34); Mean Corpuscular Volume 83 fL (80-100); Monocytes Percent Auto 11.9 % (0.0-11.0); Neutrophils Percent Auto 67.7 % (42.0-72.0); Platelet Count* 293 K/uL (140-440); Red Blood Count 5.86 m/uL (4.30-5.90); White Blood Count* 14.53 K/uL (4.50-11.00)
[2024-08-20 23:43] LABS: Slide Review Reflex No
[2024-08-20 23:55] VITALS: PULSE 87; RESP 14; O2SAT 96
[2024-08-20 23:55] LABS: Chloride* 96 mmol/L (96-114); Potassium* 3.5 mmol/L (3.6-5.1); Sodium* 136 mmol/L (135-149)
[2024-08-20 23:56] VITALS: BP 144/101; PULSE 89; RESP 13; O2SAT 96
[2024-08-20 23:57] VITALS: PULSE 92; RESP 19; O2SAT 97
[2024-08-20 23:58] LABS: Anion Gap 23 mEq/L (7-15); Blood Urea Nitrogen* 39 mg/dL (5-24); Calcium* 10.2 mg/dL (8.4-10.6); Carbon Dioxide* 17 mmol/L (20-32); Creatinine* 1.3 mg/dL (0.5-1.5); Est. Creatinine Clearance* 86.11; Estimated Glomerular Filt Rate 78 ml/min; Glucose* 102 mg/dL (60-115); Lipase* 49 U/L (23-300)
[2024-08-21] VITALS: PULSE 80; RESP 8; O2SAT 95
[2024-08-21 00:02] VITALS: BP 140/95; PULSE 74; RESP 12; O2SAT 94
[2024-08-21 00:30] VITALS: PULSE 84; RESP 23; O2SAT 97
== END 2024-08-21 00:43 | disposition home or self-care (01) ==
PROVIDERS: Emergency Provider Student in an Organized Health Care Education/Training Program; PCP Family Medicine
DX: F12.188 Cannabis abuse with other cannabis-induced disorder (principal)
CPT/HCPCS: 36415; 71250; 80048; 83690; 85025; 96374; 99284; J2765; J7030